=== PATIENT | female | born 1995 | race Caucasian/White ===

== ENCOUNTER → 2017-02-09 | Emergency (ER) | payer SELFPAY ==
[2017-02-09 19:05] VITALS: BP 119/84; PULSE 108; TEMP 100.3; BMI 24.2
--- NOTE | 2017-02-09 20:14 | PDOC ---
History of Present Illness - General History Source: Patient Exam Limitations: No Limitations - History of Present Illness Initial Comments: 02/09/17 20:58 The patient is a 21 year old female, with no significant past medical history who presents to the emergency department with lower abdominal pain, fever and white vaginal discharge. The patient states she had a recent elective miscarriage with DNC a few months ago. Since then, patient has not followed up. Patient has irregular periods with intermittent bleeding. However recently, notes white vaginal discharge, malodorous with abdominal pain and nausea. Upon arrival, patients oral temperature was 100.3. Patient denies any sick contacts or recent illnesses. Note: Patient recently moved to [place] from [place] She denies chest pain, headache or dizziness. She denies chills, nausea, vomit, diarrhea or constipation. She denies dysuria, frequency, urgency or hematuria. Allergies: Penicillins, Sulfonamide antibiotics Past surgical history: DNC in few months ago Social history: None Family hx: DM PCP: None <Hanna Gutierres - Last Filed: 02/09/17 20:58> - General History Source: Patient <PraveenVicente richards - Last Filed: 02/09/17 22:22> - General Chief Complaint: Pain Stated Complaint: STOMACH PAIN Time Seen by Provider: 02/09/17 20:07 Past History <Hanna Gutierres - Last Filed: 02/09/17 20:58> - Past Medical History Other medical history: denies - Surgical History GI Surgery: Yes (DNC) - Psycho/Social/Smoking Cessation Hx Suicidal Ideation: No Smoking History: Never smoked Have you smoked in the past 12 months: No Information on smoking cessation initiated: No Hx Alcohol Use: Yes Drug/Substance Use Hx: No Substance Use Type: None <Vicente Calvin - Last Filed: 02/09/17 22:22> - Past Medical History Allergies/Adverse Reactions: Allergies Allergy/AdvReac Type Severity Reaction Status Date / Time Penicillins Allergy Mild Rash Verified 02/09/17 19:05 Sulfa (Sulfonamide Allergy Mild Verified 02/09/17 19:05 Antibiotics) Review of Systems - Review of Systems Able to Perform ROS?: Yes Comments:: 02/09/17 20:58 GENERAL/CONSTITUTIONAL: + fever. No chills. No weakness. HEAD, EYES, EARS, NOSE AND THROAT: No change in vision. No ear pain or discharge. No sore throat. CARDIOVASCULAR: No chest pain or shortness of breath. RESPIRATORY: No cough, wheezing, or hemoptysis. GASTROINTESTINAL: + nausea. +abdominal pain. No vomiting, diarrhea or constipation. GENITOURINARY: No dysuria, frequency, or change in urination. MUSCULOSKELETAL: No joint or muscle swelling or pain. No neck or back pain. SKIN: No rash NEUROLOGIC: No headache, vertigo, loss of consciousness, or change in strength/ sensation. ENDOCRINE: No increased thirst. No abnormal weight change. HEMATOLOGIC/LYMPHATIC: No anemia, easy bleeding, or history of blood clots. ALLERGIC/IMMUNOLOGIC: No hives or skin allergy. VAGINAL:+white vaginal discharge. <Hanna Gutierres - Last Filed: 02/09/17 20:58> *Physical Exam - Vital Signs Last Vital Signs Temp Pulse Resp BP Pulse Ox 100.3 F H 108 H 20 119/84 100 02/09/17 18:55 02/09/17 18:55 02/09/17 18:55 02/09/17 18:55 02/09/17 18:55 - Physical Exam Comments: 02/09/17 20:58 GENERAL: Awake, alert, and fully oriented, in no acute distress HEAD: No signs of trauma EYES: PERRLA, EOMI, sclera anicteric, conjunctiva clear ENT: Auricles normal inspection, hearing grossly normal, nares patent, oropharynx clear without exudates. Moist mucosa NECK: Normal ROM, supple, no lymphadenopathy, JVD, or masses LUNGS: Breath sounds equal, clear to auscultation bilaterally. No wheezes, and no crackles HEART: Regular rate and rhythm, normal S1 and S2, no murmurs, rubs or gallops ABDOMEN: Soft, nontender, normoactive bowel sounds. No guarding, no rebound. No masses EXTREMITIES: Normal range of motion, no edema. No clubbing or cyanosis. No cords, erythema, or tenderness NEUROLOGICAL: Cranial nerves II through XII grossly intact. Normal speech, normal gait SKIN: Warm, Dry, normal turgor, no rashes or lesions noted. PELVIC: Minimal white discharge from vaginal vault. No bleeding. No CMT. No adnexal masses. No adnexal tenderness. <Hanna Gutierres - Last Filed: 02/09/17 20:58> - Vital Signs Last Vital Signs Temp Pulse Resp BP Pulse Ox 100.3 F H 108 H 20 119/84 100 02/09/17 18:55 02/09/17 18:55 02/09/17 18:55 02/09/17 18:55 02/09/17 18:55 <Vicente Calvin - Last Filed: 02/09/17 22:22> ED Treatment Course - LABORATORY CBC & Chemistry Diagram: 02/09/17 20:39 02/09/17 20:39 - ADDITIONAL ORDERS Additional order review: Laboratory Results 02/09/17 20:16 Urine Color Yellow Urine Appearance Clear Urine pH 5.0 Urine Protein Negative Urine Glucose (UA) Negative Urine Ketones Trace H Urine Blood Negative Urine Nitrite Negative Urine Bilirubin Negative Urine Urobilinogen Negative Ur Leukocyte Esterase Negative Urine HCG, Qual Negative <Hanna Gutierres - Last Filed: 02/09/17 20:58> - LABORATORY CBC & Chemistry Diagram: 02/09/17 20:39 02/09/17 20:39 <Vicente Calvin - Last Filed: 02/09/17 22:22> Medical Decision Making - Medical Decision Making 02/09/17 22:16 Dr. Calvin: The scribe's documentation has been prepared under my direction and personally reviewed by me in its entirery. I confirm that the note above accurately reflects all work, treatment, procedures, and medical decision making performed by me. <Vicente Calvin - Last Filed: 02/09/17 22:22> *DC/Admit/Observation/Transfer - Attestations Scribe Attestion: 02/09/17 20:59 Documentation prepared by Hanna Gutierres, acting as medical malpractice paralegal for Vicente Calvin DO. <Hanna Gutierres - Last Filed: 02/09/17 20:58> - Discharge Dispostion Admit: No <Vicente Calvin - Last Filed: 02/09/17 22:22> Diagnosis at time of Disposition: Viral illness, Pelvic pain - Discharge Dispostion Disposition: HOME Condition at time of disposition: Stable - Referrals Referrals: Janak Rahman MD [Staff Physician] - Leann Malone MD [Staff Physician] - - Patient Instructions Printed Discharge Instructions: DI for Pelvic Pain, DI for Viral Syndrome Additional Instructions: Please follow up with the doctors referred to you as needed. Return if any problems. Drink plenty of fluids Tylenol or Motrin for pain and fever. - Post Discharge Activity Work/School Note: Back to Work
[2017-02-09 20:39] LABS: URINE APPEARANCE CLEAR; URINE BILIRUBIN NEGATIVE (NEGATIVE); URINE BLOOD NEGATIVE (NEGATIVE); URINE COLOR YELLOW; URINE GLUCOSE (UA) NEGATIVE (NEGATIVE); URINE KETONE TRACE (NEGATIVE); URINE LEUK ESTERASE NEGATIVE (NEGATIVE); URINE NITRITE NEGATIVE (NEGATIVE); URINE PROTEIN NEGATIVE (NEGATIVE); URINE UROBILINOGEN NEGATIVE mg/dL (0.2-1.0)
[2017-02-09 20:52] LABS: BASOPHIL 0.3 % (0-2.0); EOSINOPHIL 0.6 % (0-4.5); MCH 28.3 pg (25.7-33.7); MEAN CELL VOLUME 85.6 fl (80-96); MEAN PLT VOLUME 7.5 fl (7.5-11.1); NEUTROPHILS 65.4 % (42.8-82.8); PLATELET COUNT 291 K/MM3 (134-434); RDW 14.6 % (11.6-15.6); WHITE BLOOD COUNT 8.6 K/mm3 (4.0-10.0)
[2017-02-09 21:46] LABS: ANION GAP 7 (8-16); CALCIUM 9.4 mg/dL (8.5-10.1); CO2 26 mmol/L (21-32); CREATININE 0.9 mg/dL (0.55-1.02); GLUCOSE,RANDOM 88 mg/dL (74-106)
== END | disposition home or self-care (01) ==
LOC: JER 18:52
DX: R10.2 Pelvic and perineal pain (principal); B34.9 Viral infection, unspecified
CPT/HCPCS: 36415; 76830-TC; 80048; 81003; 84702; 84703; 85025; 86850; 86900; 86901; 87086; 99283-25